=== PATIENT | female | born 1990 | race Caucasian/White ===

== ENCOUNTER 2018-02-08 20:04 | Emergency (ER) | payer BC, OTHER ==
[2018-02-08] MEDS ORDERED: Sodium Chloride 0.9% 1000 ML 1,000 ML IV STA ×2 (20:17→21:38)
[2018-02-08] MEDS ORDERED: Sodium Chloride 0.9% 1000 ML 1,000 ML ONE ×2 (20:35→21:35)
[2018-02-08 21:05] LABS: BASOPHIL % 0.1 % (0.0-0.4); Basophil (Absolute #) 0.01 (0-0.4); Eosinophil % 0.6 % (0.00-5.0); Eosinophil (Absolute #) 0.06 (0-0.5); Granulocyte Absolute (ANC) 7.82 (1.4-6.9); Granulocytes % 76.6 % (36.0-66.0); Hematocrit 36.5 % (35-47); Hemoglobin 12.8 gm/dl (12.0-16.0); Lymphocyte (Absolute #) 1.77 (1.0-4.6); Lymphocytes % 17.3 % (24.0-44.0); Mean Cell Volume 85.5 fl (78-100); Mean Corpuscular Hgb Concent. 35.1 g/dl (32-36); Mean Platelet Volume 11.5 fl (6-9.5); Monocyte (Absolute #) 0.55 (0.0-1.3); Monocytes % 5.4 % (0.0-12.0); Platelet Count 190 K/mm3 (150-450); Red Blood Count 4.27 M/mm3 (4.1-5.4); Red Cell Distribution Width 13.4 % (11.5-14.0); White Blood Count 10.2 K/mm3 (4.0-10.5)
[2018-02-08 21:08] LABS: ANION GAP 14.2 MEQ/L (5-15); BLOOD UREA NITROGEN 6 mg/dL (7-17); CHLORIDE 105 mmol/L (98-107); Calcium 9.4 mg/dL (8.4-10.2); Carbon Dioxide 22 mmol/L (22-30); Glucose 86 mg/dL (74-106); Potassium 3.9 mmol/L (3.5-5.1); SODIUM 138 mmol/L (137-145)
[2018-02-08] MEDS ORDERED: Zofran 4 MG/2 ML VIAL ONE (21:35)
[2018-02-08] MEDS ORDERED: Zofran 4 MG/2 ML VIAL IV ONE (21:38)
[2018-02-08 22:00] LABS: Appearance SLIGHTLY CLOUDY (CLEAR); Bilirubin NEGATIVE (NEGATIVE); Blood 50 Ery/ul (0-5); Glucose NEGATIVE (NEGATIVE); Ketones MODERATE (NEGATIVE); Leukocyte Esterase TRACE (NEGATIVE); Nitrite POSITIVE (NEGATIVE); Protein,Urine Dip NEGATIVE (Negative); Urobilinogen NORMAL mg/dL (0-1)
[2018-02-08 22:01] LABS: Bacteria PACKED /HPF (NEGATIVE); Epithelial Cells MODERATE /HPF (FEW); Mucus SLIGHT /HPF (NEGATIVE)
[2018-02-08] MEDS ORDERED: ROCEPHIN 1 Gm-D5w 50 ml Bag** 1 G/50 ML IVPB IV STA (22:14)
[2018-02-08] MEDS ORDERED: ROCEPHIN 1 Gm-D5w 50 ml Bag** 1 G/50 ML IVPB IV ONE (22:26)
[2018-02-08 22:54] VITALS: BP 100/67; O2SAT 99
--- NOTE | 2018-02-08 23:30 | ERPHSYRPT ---
- History of Present Illness Time Seen by Provider: 02/08/18 20:15 Source: patient Exam Limitations: clinical condition Patient Subjective Stated Complaint: pt is alert and oriented. pt is ambulatory. pt is 12 weeks . pt has c/o nausea and vomitting for the entirety of her . pt states that she has thrown up 3 times today. pt denies cramping, bleeding. Triage Nursing Assessment: see above. Physician History: PATIENT IS A -1, PARA-0, 12 WEEKS GESTATION COMPLAINS OF FREQUENT EPISODES OF EMESIS X 4 TODAY ASSOCIATES WITH WATERY DIARRHEA. HAS ASSOCIATED WEAKNESS AND DIZZINESS. DENIES ABDOMINAL PAIN , VAGINAL BLEEDING, PASSAGE OF TISSUE OR URINARY SYMPTOMS. Timing/Duration: today Severity: moderate Associated Symptoms: nausea, vomiting, other (DIARRHEA) Allergies/Adverse Reactions: No Known Drug Allergies Allergy (Unverified 05/14/12 21:25) Home Medications: Doxylamine Succinate/Vit B6 [Diclegis Dr 10-10 mg Tablet] 10 mg PO BID 02/08/18 [History] Vit37/Iron/Folic Acid [Prenata Chewable Tablet] 1 tab PO DAILY [History] Hx Tetanus, Diphtheria Vaccination/Date Given: Yes Hx Influenza Vaccination/Date Given: No Hx Pneumococcal Vaccination/Date Given: No Immunizations Up to Date: Yes - Review of Systems Constitutional: No Fever, No Chills Eyes: No Symptoms Ears, Nose, & Throat: No Symptoms Respiratory: No Symptoms, No Cough, No Dyspnea Cardiac: No Symptoms, No Chest Pain, No Edema, No Syncope Abdominal/Gastrointestinal: Nausea, Vomiting, Diarrhea, No Abdominal Pain Genitourinary Symptoms: No Dysuria Musculoskeletal: No Symptoms, No Back Pain, No Neck Pain Skin: No Rash Neurological: No Dizziness, No Focal Weakness, No Sensory Changes Psychological: No Symptoms Endocrine: No Symptoms All Other Systems: Reviewed and Negative - Past Medical History Pertinent Past Medical History: Yes Neurological History: Migraines ENT History: No Pertinent History Cardiac History: No Pertinent History Respiratory History: No Pertinent History Endocrine Medical History: No Pertinent History Musculoskeletal History: No Pertinent History GI Medical History: No Pertinent History History: No Pertinent History Psycho-Social History: No Pertinent History Female Reproductive Disorders: No Pertinent History - Past Surgical History Past Surgical History: Yes Other Surgical History: TUBES IN EARS - Social History Smoking Status: Never smoker Exposure to second hand smoke: No Alcohol Use: None Drug Use: none Patient Lives Alone: No (family) Significant Family History: other - Female History Hx Now: Yes Expected Date of Delivery: 08/21/18 - Nursing Vital Signs Nursing Vital Signs: Initial Vital Signs Pulse Rate 78 02/08/18 20:04 Respiratory Rate 16 02/08/18 20:04 Blood Pressure 92/62 02/08/18 20:04 O2 Sat by Pulse Oximetry 100 02/08/18 20:04 Pain Scale Pain Intensity 0 - Physical Exam General Appearance: no apparent distress, alert Eye Exam: PERRL/EOMI, eyes nml inspection Ears, Nose, Throat Exam: normal ENT inspection, TMs normal, pharynx normal, moist mucous membranes Neck Exam: normal inspection, non-tender, supple, full range of motion Respiratory Exam: normal breath sounds, lungs clear, No respiratory distress Cardiovascular Exam: regular rate/rhythm, normal heart sounds, normal peripheral pulses Gastrointestinal/Abdomen Exam: soft, normal bowel sounds, other (NONTENDER), No tenderness, No mass Back Exam: normal inspection, normal range of motion, No CVA tenderness, No vertebral tenderness Extremity Exam: normal inspection, normal range of motion, pelvis stable Neurologic Exam: alert, oriented x 3, cooperative, normal mood/affect, nml cerebellar function, nml station & gait, sensation nml, No motor deficits Skin Exam: normal color, warm, dry, No rash Lymphatic Exam: No adenopathy SpO2 Interpretation: normal SpO2: 99 Oxygen Delivery: Room Air Ordered Tests: Active Orders 24 hr Category Date Time Status Heart Tones-ED STAT Care 02/08/18 20:18 Active IV Insertion STAT Care 02/08/18 20:17 Active Orthostatic Vital Signs STAT Care 02/08/18 20:17 Active BLOOD CULTURE Stat Lab 02/08/18 20:20 Received BMP Stat Lab 02/08/18 20:43 Completed CBC W DIFF Stat Lab 02/08/18 20:43 Completed CULTURE,URINE Stat Lab 02/08/18 21:45 Received UA W/ MICROSCOPIC Stat Lab 02/08/18 21:45 Completed Medication Summary Discontinued Medications Generic Name Dose Route Start Last Admin Trade Name Freq PRN Reason Stop Dose Admin Sodium Chloride 1,000 mls @ 999 mls/hr 02/08/18 20:17 02/08/18 20:39 Sodium Chloride 0.9% 1000 Ml IV 02/08/18 21:17 999 mls/hr .Q1H1M STA Administration Sodium Chloride Confirm 02/08/18 20:35 Sodium Chloride 0.9% 1000 Ml Administered 02/08/18 20:36 Dose 1,000 mls @ ud .ROUTE .STK-MED ONE Sodium Chloride Confirm 02/08/18 21:35 Sodium Chloride 0.9% 1000 Ml Administered 02/08/18 21:36 Dose 1,000 mls @ ud .ROUTE .STK-MED ONE Sodium Chloride 1,000 mls @ 999 mls/hr 02/08/18 21:38 02/08/18 21:45 Sodium Chloride 0.9% 1000 Ml IV 02/08/18 22:38 999 mls/hr .Q1H1M STA Administration Ceftriaxone Sodium/Dextrose 1 g in 50 mls @ 100 mls/hr 02/08/18 22:14 22:32 Rocephin 1 Gm-D5w 50 Ml Bag IV 02/08/18 22:43 100 mls/hr STAT STA Administration Ceftriaxone Sodium/Dextrose Confirm 02/08/18 22:26 Rocephin 1 Gm-D5w 50 Ml Bag Administered 02/08/18 22:27 Dose 1 g in 50 mls @ ud IV .STK-MED ONE Ondansetron HCl Confirm 02/08/18 21:35 Zofran 4 Mg/2 Ml Vial Administered 02/08/18 21:36 Dose 4 mg .ROUTE .STK-MED ONE Ondansetron HCl 4 mg 02/08/18 21:38 02/08/18 21:44 Zofran 4 Mg/2 Ml Vial IV 02/08/18 21:39 4 mg STAT ONE Administration Lab/Rad Data: Laboratory Result Diagrams 02/08/18 20:43 02/08/18 20:43 Laboratory Results 02/08/18 02/08/18 02/08/18 Range/Units 21:45 20:43 20:43 WBC 10.2 (4.0-10.5) K/mm3 RBC 4.27 (4.1-5.4) M/mm3 Hgb 12.8 (12.0-16.0) gm/dl Hct 36.5 (35-47) % MCV 85.5 (78-100) fl MCH 30.0 (26-32) pg MCHC 35.1 (32-36) g/dl RDW 13.4 (11.5-14.0) % Plt Count 190 (150-450) K/mm3 MPV 11.5 H (6-9.5) fl Gran % 76.6 H (36.0-66.0) % Eos # (Auto) 0.06 (0-0.5) Absolute Lymphs (auto) 1.77 (1.0-4.6) Absolute Monos (auto) 0.55 (0.0-1.3) Lymphocytes % 17.3 L (24.0-44.0) % Monocytes % 5.4 (0.0-12.0) % Eosinophils % 0.6 (0.00-5.0) % Basophils % 0.1 (0.0-0.4) % Absolute Granulocytes 7.82 H (1.4-6.9) Basophils # 0.01 (0-0.4) Sodium 138 (137-145) mmol/L Potassium 3.9 (3.5-5.1) mmol/L Chloride 105 (98-107) mmol/L Carbon Dioxide 22 (22-30) mmol/L Anion Gap 14.2 (5-15) MEQ/L BUN 6 L (7-17) mg/dL Creatinine 0.60 (0.52-1.04) mg/dL Estimated GFR > 60.0 ML/MIN Glucose 86 (74-106) mg/dL Calcium 9.4 (8.4-10.2) mg/dL Ur Collection Type VOID Urine Color YELLOW (YELLOW) Urine Appearance SLIGHTLY CLOUDY (CLEAR) Urine pH 6.0 (5-6) Ur Specific [place] 1.010 (1.005-1.025) Urine Protein NEGATIVE (Negative) Urine Ketones MODERATE (NEGATIVE) Urine Blood 50 (0-5) Dio/ul Urine Nitrite POSITIVE (NEGATIVE) Urine Bilirubin NEGATIVE (NEGATIVE) Urine Urobilinogen NORMAL (0-1) mg/dL Ur Leukocyte Esterase TRACE (NEGATIVE) Urine Microscopic RBC 2-5 (0-2) /HPF Urine Microscopic WBC 2-5 (0-5) /HPF Ur Epithelial Cells MODERATE (FEW) /HPF Urine Bacteria PACKED (NEGATIVE) /HPF Urine Mucus SLIGHT (NEGATIVE) /HPF Urine Culture Reflexed YES (NO) Urine Glucose NEGATIVE (NEGATIVE) mg/dL Specimen Received 02/08/18 5207 - Progress Progress Note: 02/08/18 23:31 IV NORMAL SALINE 2 LITERS OVER 3 HOURS, ZOFRAN 4MG IV AND AFTER 2 SETS OF BLOOD CULTURES ROCEPHIN 1 GM IVPB. PATIENT HAD NO EPISODES OF DRY HEAVES ODR EMESIS IN THE EMERGENCY. Counseled pt/family regarding: lab results, diagnosis, need for follow-up - Departure Time of Disposition: 23:37 Departure Disposition: Home Clinical Impression: HYPEREMESIS GRAVIDARIUM, URINARY TRACT INFECTION Condition: Stable Critical Care Time: No Referrals: NALDO ROMERO, [employer] PATCHING MACHINE OPERATOR [Primary Care Provider] - Additional Instructions: DRINK PLENTY OF FLUIDS, BEGIN A CLEAR LIQUID FOR 24 HOURS THEN ADVANCE DIET TOLERATED. ZOFRAN 4MG EVERY 6 HOURS FOR NAUSEA. [id number] TWICE DAILY FOR 10 DAYS FOR TREATMENT OF URINARY TRACT INFECTION. FOLLOWUP WITH YOUR ASSISTANT WOMEN'S SOCCER COACH SCHEDULED. Prescriptions: Ondansetron ODT 4 MG [Zofran Odt 4 mg] 4 mg PO Q6H PRN PRN #10 tab.rapdis PRN Reason: Nausea Nitrofurantoin Macro 100 mg [Macrobid 100MG Capsule] 100 mg PO BID #20 cap
[2018-02-08] MEDS ORDERED: ZOFRAN ODT 4 MG PO ONE (23:39)
[2018-02-08] MEDS ORDERED: ZOFRAN ODT 4 MG ONE (23:46)
[2018-02-08 23:56] VITALS: PULSE 80
== END 2018-02-08 23:56 | disposition home or self-care (01) ==
LOC: ED 20:04
DX: O21.0 Mild hyperemesis gravidarum (principal); O23.41 Unspecified infection of urinary tract in pregnancy, first trimester; Z3A.12 12 weeks gestation of pregnancy
CPT/HCPCS: 36000; 36415; 80048; 81000; 85025; 87040; 87077; 87086; 87186; 96360; 96361; 96365; 96374; 99284; J0696; J2405; Q0162

== ENCOUNTER 2021-05-20 22:11 | Emergency (ER) | payer OTHER ==
--- NOTE | 2021-05-20 22:15 | ERPHSYRPT ---
- History of Present Illness Time Seen by Provider: 05/20/21 22:15 Source: patient Exam Limitations: no limitations Physician History: This is a 30-year-old left-handed, white female has a history of migraine headaches and is a patient of Dr. Zach Schmitz and presents with left elbow pain, right ankle pain after falling off a porch this evening prior to arrival. Patient did not hit her head. She had no headache and she has no neck pain. However she has the pain in the above-stated sites and has an abrasion to the left elbow. Patient has having trouble extending her left elbow. Occurred: just prior to arrival Injuries/Pain Location: upper extremity (Left elbow and proximal left forearm), lower extremity (Right ankle) Loss of Consciousness: no loss of consciousness Quality: aching Severity of Pain-Max: moderate Severity of Pain-Current: mild (To moderate) Modifying Factors: Improves With: movement Associated Symptoms (Fall): extremity injury (Left elbow and proximal forearm on the left side; right ankle) Allergies/Adverse Reactions: No Known Drug Allergies Allergy (Verified 05/20/21 22:31) Hx Tetanus, Diphtheria Vaccination/Date Given: Yes Hx Influenza Vaccination/Date Given: No Hx Pneumococcal Vaccination/Date Given: No Travel Risk - International Travel Have you traveled outside of the country in past 3 weeks: No - Coronavirus Screening Are you exhibiting any of the following symptoms?: No Close contact with a COVID-19 positive Pt in past 14-21 Days: No - Review of Systems Constitutional: No Symptoms Eyes: No Symptoms Ears, Nose, & Throat: No Symptoms Respiratory: No Symptoms Cardiac: No Symptoms Abdominal/Gastrointestinal: No Symptoms Genitourinary Symptoms: No Symptoms Musculoskeletal: Injury (Left elbow and proximal forearm; right ankle) Skin: Other (Abrasion left elbow) Psychological: No Symptoms Endocrine: No Symptoms Hematologic/Lymphatic: No Symptoms Immunological/Allergic: No Symptoms All Other Systems: Reviewed and Negative - Past Medical History Pertinent Past Medical History: Yes Neurological History: Migraines ENT History: No Pertinent History Cardiac History: No Pertinent History Respiratory History: No Pertinent History Endocrine Medical History: No Pertinent History Musculoskeletal History: No Pertinent History GI Medical History: No Pertinent History History: No Pertinent History Psycho-Social History: No Pertinent History Female Reproductive Disorders: No Pertinent History - Past Surgical History Past Surgical History: Yes Other Surgical History: TUBES IN EARS - Social History Smoking Status: Never smoker Exposure to second hand smoke: No Alcohol Use: None Drug Use: none Patient Lives Alone: No (family) Significant Family History: other - Nursing Vital Signs Nursing Vital Signs: Initial Vital Signs Temperature 98 F 05/20/21 22:32 Pulse Rate 85 05/20/21 22:32 Respiratory Rate 16 05/20/21 22:32 Blood Pressure 107/77 05/20/21 22:32 O2 Sat by Pulse Oximetry 99 05/20/21 22:32 Pain Scale Pain Intensity 4 - [place] Coma Score Best Eye Response ([place]): (4) open spontaneously Best Verbal Response ([place]): (5) oriented Best Motor Response ([place]): (6) obeys commands [place] Total: 15 - Physical Exam General Appearance: no apparent distress, alert, anxiety Head Injury: no evidence of injury Eye Exam: PERRL/EOMI, eyes nml inspection ENT Exam: airway nml, nml ext.inspection Neck Exam: supple, trachea midline, full range of motion, normal alignment, normal inspection Respiratory/Chest Exam: No chest tenderness, No respiratory distress Gastrointestinal Exam: No tenderness Rectal Exam: not done Back Exam: normal inspection, normal range of motion, No CVA tenderness, No vertebral tenderness Extremity Exam: limited range of motion (Left elbow), evidence of injury (Left elbow), tenderness (Left elbow and right ankle. The right ankle has full range of motion. Both the left upper extremity and the right foot and ankle are neurovascularly intact.), other (There is a superficial abrasion) Neurologic Exam: alert, oriented x 3, cooperative, finishing technician II-XII nml as tested, normal mood/affect, nml cerebellar function, nml station & gait, sensation nml Skin Exam: abrasion (See above) SpO2 Interpretation: normal O2 Delivery: Room Air Ordered Tests: Active Orders 24 hr Category Date Time Status Sling Application STAT Care 05/21/21 00:54 Ordered ANKLE (3 VIEWS) Stat Exams 05/20/21 22:52 Ordered ELBOW (MINIMUM 3 VIEWS) Stat Exams 05/20/21 22:53 Ordered FOREARM Stat Exams 05/20/21 22:53 Ordered Medication Summary Discontinued Medications Generic Name Dose Route Start Last Admin Trade Name Freq PRN Reason Stop Dose Admin Ibuprofen 600 mg 05/20/21 23:04 05/20/21 23:15 Motrin 600 Mg PO 05/20/21 23:05 600 mg STAT ONE Administration Ibuprofen Confirm 05/20/21 23:14 Motrin 600 Mg Administered 05/20/21 23:15 Dose 600 mg .ROUTE .STK-MED ONE Oxycodone/Acetaminophen 1 tab 05/20/21 23:04 05/20/21 23:16 Percocet Tablet 5/325mg PO 05/20/21 23:05 1 tab STAT STA Administration Oxycodone/Acetaminophen Confirm 05/20/21 23:14 Percocet Tablet 5/325mg Administered 05/20/21 23:15 Dose 1 tab .ROUTE .STK-MED ONE - Progress Progress: improved, pain not gone completely Progress Note: 05/21/21 00:55 X-ray of left elbow shows no acute fracture or dislocation. X-ray of left forearm is negative for acute fracture dislocation. X-ray of right ankle shows no acute fracture or dislocation. Counseled pt/family regarding: diagnosis, need for follow-up, rad results - Departure Departure Disposition: Home Clinical Impression: Fall with injury, Abrasion of left elbow, Right ankle sprain Condition: Stable Critical Care Time: No Referrals: RAYRAY CHAVES [Primary Care Provider] - [facility]-Ortho M-F [id number] Additional Instructions: Ice pack to all tender areas 3 times a day for the next 48 hours. Keep the abrasion site clean daily with soap and water and may apply antibiotic ointment of choice. Follow-up today with orthopedic clinic here at [facility] for further management and instructions. Wear the sling for comfort.
[2021-05-20] MEDS ORDERED: MOTRIN 600 MG PO ONE (23:04)
[2021-05-20] MEDS ORDERED: PERCOCET TABLET 5/325MG PO STA (23:04)
[2021-05-20] MEDS ORDERED: PERCOCET TABLET 5/325MG ONE (23:14)
[2021-05-20] MEDS ORDERED: MOTRIN 600 MG ONE (23:14)
[2021-05-21 00:34] VITALS: O2SAT 98
[2021-05-21] MEDS ORDERED: PERCOCET TABLET 5/325MG PO STA (00:54)
[2021-05-21] MEDS ORDERED: PERCOCET TABLET 5/325MG ONE (00:58)
[2021-05-21 01:07] VITALS: BP 121/74; PULSE 81
--- NOTE | 2021-05-21 08:38 | XRAY ---
Indication: Pain following fall. Comparison: None. 3 view left elbow demonstrates normal bones, articulation, and soft tissues. Comment: Preliminary interpretation made by [facility]. No critical discrepancy.
--- NOTE | 2021-05-21 08:40 | XRAY ---
Indication: Pain following fall. Comparison: None. 2 view left forearm demonstrates normal bones, articulation, and soft tissues. Comment: Preliminary interpretation made by [facility]. No critical discrepancy.
--- NOTE | 2021-05-21 08:40 | XRAY ---
Indication: Pain following fall. Comparison: None. 3 view right ankle demonstrates tiny posterior heel spur. No other bony, articular, or soft tissue abnormalities. Comment: Preliminary interpretation made by [facility]. No critical discrepancy.
== END 2021-05-21 01:16 | disposition home or self-care (01) ==
LOC: ED 22:11
DX: S50.312A Abrasion of left elbow, initial encounter (principal); S90.511A Abrasion, right ankle, initial encounter; W17.89XA Other fall from one level to another, initial encounter
CPT/HCPCS: 73080; 73090; 73610; 99284; A9270-GY

== ENCOUNTER 2022-09-19 09:27 | Emergency (ER) | payer OTHER ==
[2022-09-19 09:41] VITALS: BP 114/73; PULSE 79; O2SAT 100
[2022-09-19] MEDS ORDERED: TORAdol 30 mg Injection IM ONE (10:04)
[2022-09-19] MEDS ORDERED: Norflex 60 MG/2 ML IM ONE (10:05)
[2022-09-19] MEDS ORDERED: TORAdol 30 mg Injection ONE (10:06)
[2022-09-19] MEDS ORDERED: Norflex 60 MG/2 ML ONE (10:08)
--- NOTE | 2022-09-19 11:04 | XRAY ---
Indication: Pain following fall. Multiple contiguous axial images obtained through the thoracic spine. Sagittal and coronal reformatted images obtained. Comparison: None Axial images negative for acute fracture, suspicious bony lesions, or large disc herniation. Sagittal and coronal reformatted images demonstrates normal alignment with vertebral body heights/disc spaces maintained. No acute compression fracture or subluxation. Visualized noncontrasted soft tissues are unremarkable. Impression: Normal CT thoracic spine.
--- NOTE | 2022-09-19 11:50 | ERPHSYRPT ---
- History of Present Illness Time Seen by Provider: 09/19/22 10:00 Source: patient Exam Limitations: no limitations Patient Subjective Stated Complaint: pt here for a fall down 2 icy stairs, co pain to upper and middle back Triage Nursing Assessment: pt alert, resp easy, face mask in place, skin w/d/p. no bruising or abrsions noted Physician History: 31-year-old female presented in the ER with chief complaint of upper back pain since morning. Patient reports she slipped on ice, fell backward and tried to stop herself with both hands and stretched her upper back muscle. Since then she is having off-and-on sharp pain in the shoulder blade area. Did not hit her head, no loss of consciousness or injury anywhere else. Timing/Duration: today Method of Injury: fall, lost balance, twisted Quality: sharp Back Pain Location: T-spine Modifying Factors: Improves With: immobilization. Worsens With: movement Associated Symptoms: denies symptoms Previous symptoms: no prior history Allergies/Adverse Reactions: No Known Drug Allergies Allergy (Verified 09/19/22 09:39) Hx Tetanus, Diphtheria Vaccination/Date Given: Yes Hx Influenza Vaccination/Date Given: No Hx Pneumococcal Vaccination/Date Given: No Immunizations Up to Date: Yes Travel Risk - International Travel Have you traveled outside of the country in past 3 weeks: No - Coronavirus Screening Are you exhibiting any of the following symptoms?: No - Vaccine Status Have you recieved a Covid-19 vaccination: Yes Lead Technician: Moderna - Vaccination Dates Date of 2cond Vaccination (if applicable): 2020 - Review of Systems Constitutional: Night Sweats Eyes: No Symptoms Ears, Nose, & Throat: No Symptoms Respiratory: No Symptoms Cardiac: No Symptoms Abdominal/Gastrointestinal: No Symptoms Genitourinary Symptoms: No Symptoms Musculoskeletal: Back Pain, Injury Skin: No Symptoms Neurological: No Symptoms Endocrine: No Symptoms Hematologic/Lymphatic: No Symptoms Immunological/Allergic: No Symptoms - Past Medical History Pertinent Past Medical History: No Neurological History: Migraines ENT History: No Pertinent History Cardiac History: No Pertinent History Respiratory History: No Pertinent History Endocrine Medical History: No Pertinent History Musculoskeletal History: No Pertinent History GI Medical History: No Pertinent History History: No Pertinent History Psycho-Social History: No Pertinent History Female Reproductive Disorders: No Pertinent History - Past Surgical History Past Surgical History: Yes Female Surgical History: Section Other Surgical History: TUBES IN EARS - Social History Smoking Status: Never smoker Exposure to second hand smoke: No Alcohol Use: None Drug Use: none Patient Lives Alone: No (family) Significant Family History: other - Female History Hx Last Menstrual Period: last wed Hx Now: No - Nursing Vital Signs Nursing Vital Signs: Initial Vital Signs Temperature 97.4 F 09/19/22 09:40 Pulse Rate 79 09/19/22 09:40 Respiratory Rate 18 09/19/22 09:40 Blood Pressure 114/73 09/19/22 09:40 O2 Sat by Pulse Oximetry 100 09/19/22 09:40 Pain Scale Pain Intensity [Back] 3 Pain Intensity 1 - Physical Exam General Appearance: no apparent distress, alert Eye Exam: PERRL/EOMI Ears, Nose, Throat Exam: normal ENT inspection Neck Exam: normal inspection, non-tender, supple, full range of motion Respiratory Exam: normal breath sounds, lungs clear Cardiovascular Exam: regular rate/rhythm, normal heart sounds Gastrointestinal Exam: soft, No tenderness Back Exam: normal inspection, normal range of motion, muscle spasm, point tenderness (Bilateral thoracic paraspinal area), No vertebral tenderness Extremity Exam: normal inspection, normal range of motion Neurologic Exam: alert, oriented x 3, cooperative, carry in worker II-XII nml as tested, normal mood/affect, nml station & gait, sensation nml, No motor deficits, No sensory deficit Skin Exam: normal color SpO2 Interpretation: normal SpO2: 100 O2 Delivery: Room Air Ordered Tests: Active Orders 24 hr Category Date Time Status THORACIC SPINE W/O CONTRAST [CT] Stat Exams 09/19/22 10:05 Completed Medication Summary Discontinued Medications Generic Name Dose Route Start Last Admin Trade Name [place]les PRN Reason Stop Dose Admin Ketorolac Tromethamine 30 mg 09/19/22 10:04 09/19/22 10:07 Ketorolac Tromethamine 30 Mg/Ml Inj IM 09/19/22 10:05 30 mg STAT ONE Administration Ketorolac Tromethamine Confirm 09/19/22 10:06 Ketorolac Tromethamine 30 Mg/Ml Inj Administered 09/19/22 10:07 Dose 30 mg .ROUTE .STK-MED ONE Orphenadrine Citrate 60 mg 09/19/22 10:05 09/19/22 10:09 Orphenadrine Citrate 60 Mg/2 Ml Vial IM 09/19/22 10:06 60 mg STAT ONE Administration Orphenadrine Citrate Confirm 09/19/22 10:08 Orphenadrine Citrate 60 Mg/2 Ml Vial Administered 09/19/22 10:09 Dose 60 mg .ROUTE .K-MED ONE - Progress Progress: improved Progress Note: 09/19/22 11:47 31-year-old healthy female is evaluated in the ER for upper back pain after she slid on ice leading to falling backward and tried to stop with her both hands and overstretched upper back. This happened earlier this morning and since then having off-and-on sharp pain in the upper back bilaterally with no radiation, moderate to severe and hurts to twist of chest and deep breathing. No difficulty breathing otherwise. No injury anywhere else. She does not have definite of thoracic spine tenderness but does have tenderness on the both paraspinal area with more on the left side. She is given Toradol and Norflex, on reevaluation her pain is much more improved. I have obtained CT thoracic spine which is negative for fracture or subluxation. No other acute findings. I believe patient has muscle strain, recommended NSAIDs and Robaxin and outpatient follow-up. Discussed signs symptoms of worsening needing return to ER which she seems understanding. Counseled pt/family regarding: diagnosis, need for follow-up, rad results - Departure Departure Disposition: Home Clinical Impression: Muscle strain of upper back Condition: Stable Critical Care Time: No Referrals: RAYRAY CHAVES [Primary Care Provider] - Follow Up with PCP/3 days Instructions: Muscle Strain Additional Instructions: Take Tylenol/ibuprofen as needed for pain Follow-up with primary care for reevaluation. Avoid exertional work. Return to ER for any worsening. Prescriptions: Ibuprofen 600 mg PO Q6HPRN PRN 10 Days #20 tablet PRN Reason: Pain Methocarbamol [Robaxin] 500 mg PO QID 5 Days #20 tablet
== END 2022-09-19 11:57 | disposition home or self-care (01) ==
LOC: ED 09:27
DX: S29.012A Strain of muscle and tendon of back wall of thorax, initial encounter (principal); W00.1XXA Fall from stairs and steps due to ice and snow, initial encounter; M54.6 Pain in thoracic spine
CPT/HCPCS: 72128; 96372; 99283; J1885; J2360